=== PATIENT | female | born 1990 | race Caucasian/White ===

== ENCOUNTER 2016-11-21 13:39 | Emergency (ER) | payer OTHER ==
[~2016-11-21] VITALS: Ht 154.9 cm; Wt 91.1 kg
[2016-11-21 13:41] VITALS: BP 139/85; PULSE 80; TEMP 36.9; O2SAT 99; Ht 154.9 cm; Wt 91.1 kg
[2016-11-21] MEDS ORDERED: NYSTATIN POWDER 15GM BTL EXT ONE (14:45)
[2016-11-21] MEDS ORDERED: NYST-19 TD (15:15)
--- NOTE | 2016-11-21 15:15 | EMERGENCY ROOM VISIT NOTE ---
ED Visit Note First contact with patient: 13:48 Chief Complaint: Rash History of Present Illness: Patient is a [age] female who presents to the emergency department for evaluation of a rash under her breasts and stomach. She reports that she's had this rash past 2 weeks. She is tried Desitin as well as baby pallor and calamine lotion without relief of symptoms. She denies fevers or chills. She reports that the rash smells as well. She is not a diabetic. She's had no similar rashes in the past. She rates her current discomfort as a 5/10. She denies any fevers, chills, nausea, vomiting, or vaginal discharge/drainage. Medications: Reviewed and discussed with the patient. Allergies: Amoxicillin, penicillins PMH: No pertinent past medical history. SHx: Patient is a 26-year-old female who lives locally. ROS: All pertinent positive and negative review of systems are appropriately documented in the History of Present Illness. Physical Exam: VITAL SIGNS - Vital signs and Nursing Notes were reviewed. GENERAL -26 year old female, well-developed, well-nourished, and in no acute distress. SKIN -well demarcated erythematous rashes noted in the intertriginous areas under the breast and pannus. No discharge or warmth to touch. NEURO - Patient is A&Ox3 and communicates appropriately with the provider. ED Course: Patient was seen and evaluated by myself. The patient was provided nystatin powder for comfort. She'll follow-up with her primary care provider from today' s visit. She will return for any changing/worsening symptoms. Patient discharged home afebrile and in good condition. In the evaluation and treatment of this patient, the following differential diagnoses were considered: Cellulitis, dermatitis, foreign body, amongst others. Impression: Candidal Rash Discharge Instructions: You have been seen in the emergency department today for a candidal rash. Please apply the nystatin powder for comfort. Follow-up with your primary care provider from today's visit. Return for any changing or worsening symptoms. Problem List Medical Problems: (1) Asthma, Unspecified Status: Chronic (2) Contusion of wrist, right Status: Resolved (3) Dental caries Status: Resolved (4) Intrauterine Status: Resolved (5) Normal labor Status: Resolved (6) Otalgia of left ear Status: Resolved (7) Pain, dental Status: Resolved (8) Pain, dental Status: Resolved (9) Right conjunctivitis Status: Resolved (10) Upper respiratory infection Status: Resolved (11) Viral pharyngitis Status: Resolved (12) Wrist pain, right Status: Resolved Surgical Problems: (1) History of - tubal ligation Status: Resolved Current/Historical Medications Scheduled Nystatin (Topical) (Nyata), 1 APPLN TD TID Allergies Coded Allergies: Fish (Unverified Allergy, Severe, STOP BREATHING, 11/21/16) PATIENT STATES SHE IS ALLERGIC TO ALL FISH NOT JUST WHITE FISH White Fish (Verified Allergy, Severe, SWELLING; TROUBLE BREATHING, 11/21/16) Amoxicillin (Verified Allergy, Unknown, RASH, 11/21/16) Animal Dander (Verified Allergy, Unknown, ITCHING & SNEEZING, 11/21/16) Penicillins (Verified Allergy, Unknown, 11/21/16) Vital Signs Date Time Temp Pulse Resp B/P Pulse Ox O2 Delivery O2 Flow Rate FiO2 11/21/16 13:41 36.9 80 17 139/85 99 Room Air Medications Administered Medications (Trade) Dose Ordered Sig/Noemy Route Start Time Stop Time Status Last Admin Dose Admin Nystatin (Mycostatin Powder) 1 appln NOW ONCE EXT 11/21/16 14:45 11/21/16 14:46 DC 11/21/16 15:05 45 APPLN Departure Information Impression Primary Impression: Candidal intertrigo Dispostion Home / Self-Care Condition GOOD Prescriptions Nystatin (Topical) (Nyata) 100,000 Unit/Gm Pow 1 APPLN TD TID for 14 Days, #1 BTL 1 Refill Prov: Jerome Woodard, GERRY 11/21/16 Referrals No Doctor, Assigned (PCP) Patient Instructions ED Candidiasis Cutaneous, My [facility] Additional Instructions You have been seen in the emergency department today for a candidal rash. Please apply the nystatin powder for comfort. Follow-up with your primary care provider from today's visit. Return for any changing or worsening symptoms.
== END 2016-11-21 15:21 | disposition home or self-care (01) ==
LOC: C.EDB 13:41 → C.EDD 15:21
DX: B37.2 Candidiasis of skin and nail (principal); J45.909 Unspecified asthma, uncomplicated

== ENCOUNTER 2016-12-26 16:42 | Emergency (ER) | payer OTHER ==
[~2016-12-26] VITALS: Ht 154.9 cm; Wt 92.7 kg
[~2016-12-26 16:42] MED LIST: NYST-19 TD
[2016-12-26 16:49] VITALS: TEMP 36.8; Ht 154.9 cm; Wt 92.7 kg
[2016-12-26] MEDS ORDERED: BENZ100C18 PO (18:01)
--- NOTE | 2016-12-26 18:05 | DIAGNOSTIC IMAGING REPORT ---
SINGLE VIEW CHEST CLINICAL HISTORY: Cough. Sore throat. Atypical chest pain. FINDINGS: An AP, portable, upright chest radiograph is obtained. No prior studies are available for comparison at the time of dictation. The examination is degraded by portable technique, large body habitus, and patient rotation. The cardiomediastinal silhouette is unremarkable. The lungs and pleural spaces are clear. No pneumothorax is seen. The bony thorax is grossly intact. IMPRESSION: No active disease in the chest. Electronically signed by: Darren Oseguera M.D. 12/26/2016 6:03 PM Dictated Date/Time: 12/26/2016 6:03 PM
[2016-12-26 18:48] VITALS: BP 123/77; PULSE 120; O2SAT 99
--- NOTE | 2016-12-26 19:06 | EMERGENCY ROOM VISIT NOTE ---
History Report prepared by Randa: Karlo Jacinto Under the Supervision of: Dr. Stephen Finley D.O. First contact with patient: 16:52 Chief Complaint: ILLNESS Stated Complaint: LEFT EAR HURTS, SORE THROAT, CHEST HURTS, COUGH History of Present Illness The patient is a 26 year old female who presents to the Emergency Room with complaints of worsening cough and sore throat that began two days prior to arrival. The patient states that she is also experiencing pain in her left ear and a runny nose, but she denies any recent fevers. Pain in the left ear has been coming and going off-and-on for the past month. She also complains of a migraine headache. She has headaches frequently, and notes that this headache is per usual and unchanged as it came on gradually. The patient presents to the emergency department with two daughters who are also exhibiting flu-like symptoms. She denies change in vision, fevers, shortness of breath, nausea, vomiting, diarrhea, and pain with urination. Source of History: patient Onset: 2 days [employer]LECT[employer] Position: throat Quality: other (Sorethroat, cough) Timing: worsening Associated Symptoms: No fevers Note: Pt complains of left ear pain, and runny nose Review of Systems See HPI for pertinent positives & negatives. A total of 10 systems reviewed and were otherwise negative. Past Medical & Surgical Medical Problems: (1) Asthma, Unspecified (2) Contusion of wrist, right (3) Dental caries (4) Intrauterine (5) Normal labor (6) Otalgia of left ear (7) Pain, dental (8) Pain, dental (9) Right conjunctivitis (10) Upper respiratory infection (11) Viral pharyngitis (12) Wrist pain, right Surgical Problems: (1) History of - tubal ligation Family History No pertinent family history secondary to case specifics. Social History Smoking Status: Never Smoker Alcohol Use: none Marital Status: single Housing Status: lives with family Occupation Status: employed Current/Historical Medications Scheduled Benzonatate (Tessalon Perles), 100 MG PO TID Allergies Coded Allergies: Fish (Unverified Allergy, Severe, STOP BREATHING, 12/26/16) PATIENT STATES SHE IS ALLERGIC TO ALL FISH NOT JUST WHITE FISH White Fish (Verified Allergy, Severe, SWELLING; TROUBLE BREATHING, 12/26/16) Amoxicillin (Verified Allergy, Unknown, RASH, 12/26/16) Animal Dander (Verified Allergy, Unknown, ITCHING & SNEEZING, 12/26/16) Penicillins (Verified Allergy, Unknown, 12/26/16) Physical Exam Vital Signs Date Time Temp Pulse Resp B/P Pulse Ox O2 Delivery O2 Flow Rate FiO2 12/26/16 18:48 120 18 123/77 99 12/26/16 16:49 36.8 127 93 104/74 Room Air Physical Exam GENERAL: Sitting in chair. Disheveled with a dry cough. well nourished, no distress, non-toxic EYE EXAM: normal conjunctiva, PERRL and EOM's grossly intact EARS: TMs clear bilaterally. OROPHARYNX: no exudate, no erythema, lips, buccal mucosa, and tongue normal and mucous membranes are moist NECK: supple, no nuchal rigidity, no adenopathy, non-tender LUNGS: Clear to auscultation. Normal chest wall mechanics HEART: Tachycardiac. no murmurs, S1 normal and S2 normal ABDOMEN: abdomen soft, non-tender, normo-active bowel sounds, no masses, no rebound or guarding. BACK: Back is symmetrical on inspection and there is no deformity, no midline tenderness, no CVA tenderness. SKIN: no rashes and no bruising UPPER EXTREMITIES: upper extremities are grossly normal. LOWER EXTREMITIES: No pitting edema. NEURO EXAM: Normal sensorium, cranial nerves II-XII grossly intact, normal speech, no gross weakness of arms, no gross weakness of legs. Medical Decision & Procedures ER Provider Diagnostic Interpretation: Xray results per the radiologist and my interpretation. Other results have been interpreted by the radiologist and reviewed by me. SINGLE VIEW CHEST CLINICAL HISTORY: Cough. Sore throat. Atypical chest pain. FINDINGS: An AP, portable, upright chest radiograph is obtained. No prior studies are available for comparison at the time of dictation. The examination is degraded by portable technique, large body habitus, and patient rotation. The cardiomediastinal silhouette is unremarkable. The lungs and pleural spaces are clear. No pneumothorax is seen. The bony thorax is grossly intact. IMPRESSION: No active disease in the chest. Electronically signed by: Darren Oseguera M.D. 12/26/2016 6:03 PM Dictated Date/Time: 12/26/2016 6:03 PM ED Course ED COURSE: Vital signs were reviewed and showed Tachycardiac vitals The patients medical record was reviewed The above diagnostic studies were performed and reviewed. ED treatments and interventions as stated above. 1658: The patient was evaluated in room A11B. A complete history and physical examination was performed. 1815: Upon reevaluation, the patient is sitting in the room.I discussed my findings with the patient and she understands and agrees with the treatment plan. Based on the patients age, coexisting illnesses, exam and lab findings the decision to treat as an outpatient was made. The patient remained stable while under my care. The patient appeared well at the time of discharge. Medical Decision Differential diagnosis: Etiologies such as viral syndrome, otitis, pharyngitis, pneumonia, influenza, meningitis, urinary tract infection, sepsis, bacteremia, as well as others were entertained. Patient is a 26-year-old female with a past medical history of asthma who presents the ER with her 2 children with the same symptoms. Her symptoms started within the past 54 hours nursing sheet with a nonproductive cough, sore throat and her ear pain has been coming and going for the past month. Patient denies any recorded fevers above 100.4. She does have congestion as well. Vitals to show mild tachycardia. Her exam was benign without wheezing. Rapid strep was negative. Chest x-ray shows no focal infiltrate. Her child did test positive for influenza a and consequently I did not test her. She is discharged with Tessalon Perles and instructed to remain hydrated. I did offer steroids but she preferred just to treat coughing as she had no shortness of breath. Patient will follow-up with her primary care doctor in the next 24-48 hours. Discussed with Pt concerning signs and symptoms to watch out for. Pt was instructed to follow up with their PCP and discussed with the patient their option to return to the ED at anytime for persistent or worsening symptoms. The appropriate anticipatory guidance and out-patient management, including indications for return to the emergency department, were explained at length to the patient and understood. Impression Primary Impression: Viral URI with cough Additional Impression: Influenza A Scribe Attestation The scribe's documentation has been prepared under my direction and personally reviewed by me in its entirety. I confirm that the note above accurately reflects all work, treatment, procedures, and medical decision making performed by me. Departure Information Dispostion Home / Self-Care Prescriptions Benzonatate (TESSALON PERLES) 100 Mg Cap 100 MG PO TID for Cough, #30 CAP Prov: Stephen Finley, DO 12/26/16 Forms WORK / SCHOOL INSTRUCTIONS, HOME CARE DOCUMENTATION FORM, IMPORTANT VISIT INFORMATION Patient Instructions My [facility], ED URI Viral Additional Instructions Please follow up with your primary care doctor with in the next 24 hours. Any worsening of your symptoms, please return to the ED immediately. This includes shortness of breath, chest pain, passing out, persistent fevers greater than 100.4. The next 3 days or any other concerning signs or symptoms from your standpoint. Please take Tylenol or Motrin as needed for the pain with coughing. Please take the Tessalon Perles as needed for coughing. Problem Qualifiers
== END 2016-12-26 18:49 | disposition home or self-care (01) ==
LOC: C.EDB 16:44 → C.EDA 18:49
DX: J06.9 Acute upper respiratory infection, unspecified (principal); J09.X2 Influenza due to identified novel influenza A virus with other respiratory manifestations; J45.909 Unspecified asthma, uncomplicated; Z86.19 Personal history of other infectious and parasitic diseases; Z98.51 Tubal ligation status; Z88.0 Allergy status to penicillin; Z88.1 Allergy status to other antibiotic agents; Z91.018 Allergy to other foods

== ENCOUNTER → 2017-05-29 | Outpatient (CLI) | payer OTHER ==
[2017-06-01 03:15] LABS: CHLAMYDIA TRACH RNA*** NOT DETECTED (NOT DETECTED); GC (NEIS GONORRHOEAE)RNA** NOT DETECTED (NOT DETECTED)
== END | disposition home or self-care (01) ==
LOC: C.LABSPEC 13:42
PROVIDERS: ATTEND Physician Assistant
DX: Z01.419 Encounter for gynecological examination (general) (routine) without abnormal findings (principal)

== ENCOUNTER → 2017-05-29 | Outpatient (CLI) | payer OTHER | END | disposition home or self-care (01) | LOC: C.PAPS 13:34 | PROVIDERS: ATTEND Physician Assistant | DX: Z01.419 Encounter for gynecological examination (general) (routine) without abnormal findings (principal) ==

== ENCOUNTER → 2017-05-29 | Outpatient (CLI) | payer OTHER | END | disposition home or self-care (01) | LOC: C.LAB1850 10:34 | PROVIDERS: ATTEND Physician Assistant | DX: Z11.3 Encounter for screening for infections with a predominantly sexual mode of transmission (principal) ==

== ENCOUNTER 2017-08-06 08:55 | Emergency (ER) | payer OTHER ==
[~2017-08-06] VITALS: Ht 154.9 cm; Wt 89.6 kg
[2017-08-06 09:03] VITALS: TEMP 37.1; Ht 154.9 cm; Wt 89.6 kg
[2017-08-06 10:09] LABS: MANUAL MICROSCOPIC REQUIRED? NO; REVIEW REQ? NO; URINE APPEARANCE CLEAR (CLEAR); URINE BILIRUBIN NEG (NEG); URINE COLOR YELLOW; URINE EPITHELIAL CELL AUTO >30 /lpf (0-5); URINE NITRITE NEG (NEG); URINE PH 5.5 (4.5-7.5); URINE SPECIFIC GRAVITY 1.024 (1.000-1.030); UROBILINOGEN NEG (NEG); ZZUR CULT IF INDIC CLEAN CATCH NO
[2017-08-06] MEDS ORDERED: SULF800T23 PO (10:51)
[2017-08-06 11:27] VITALS: BP 108/77; PULSE 90; O2SAT 99
--- NOTE | 2017-08-07 07:05 | EMERGENCY ROOM VISIT NOTE ---
History First contact with patient: 09:11 Chief Complaint: ILLNESS History of Present Illness The patient is a 27 year old female who presents to the Emergency Room with complaints of sore throat, cough, and head congestion for the past 2-3 weeks. The patient is also complaining of some very low abdominal discomfort that has been worsening over the past 3 or 4 days. The patient has not had fever or chills. She is not followed with her primary care physician for this. She is not taking medications [id number]. She rates her discomfort a 5/10. Review of Systems More than 10 systems were reviewed and otherwise negative with the exception of history of present illness. Past Medical/Surgical History Medical Problems: (1) Asthma, Unspecified (2) Contusion of wrist, right (3) Dental caries (4) Intrauterine (5) Normal labor (6) Otalgia of left ear (7) Pain, dental (8) Pain, dental (9) Right conjunctivitis (10) Upper respiratory infection (11) Viral pharyngitis (12) Wrist pain, right Surgical Problems: (1) History of - tubal ligation Family History No pertinent family history Social History Smoking Status: Former Smoker Alcohol Use: none Marital Status: single Housing Status: lives with family Occupation Status: employed Current/Historical Medications Scheduled Sulfa/Trimethoprim (Bactrim Ds 800MG/160MG), 1 TAB PO BID Physical Exam Vital Signs Date Time Temp Pulse Resp B/P (MAP) Pulse Ox O2 Delivery O2 Flow Rate FiO2 08/06/17 11:27 90 18 108/77 99 08/06/17 09:03 37.1 87 16 124/79 98 Room Air Physical Exam VITALS: Vitals are noted on the nurse's note and reviewed by myself. Vital signs stable. GENERAL: Well-developed, well-nourished, white female, who is in no acute distress and resting comfortably. Patient is cooperative with the examination. EARS: External ear normal. External auditory canals clear, tympanic membranes pearly rockwell without erythema or effusion bilaterally. EYES: Pupils equal round and reactive to light and accommodation. Conjunctivae without injection, sclerae without icterus. Extraocular movements intact. NOSE: Patent, turbinates without inflammation or discharge. MOUTH: Mucous membranes moist. Tonsils are not enlarged. Pharynx without erythema, blood, or exudate. Uvula midline. Airway patent. NECK: Supple without nuchal rigidity. No lymphadenopathy. No thyromegaly. Cervical spine is nontender. HEART: Regular rate and rhythm without murmurs gallops or rubs. LUNGS: Clear to auscultation bilaterally without wheezes, rales or rhonchi. No retractions or accessory muscle use. ABDOMEN: Positive normal bowel sounds x 4. Soft, nontender, without masses or organomegaly. No guarding or rebound tenderness. MUSCULOSKELETAL: No muscle atrophy, erythema, or edema noted. Full range of motion without joint tenderness in all extremities. Medical Decision & Procedures Laboratory Results Test 08/06/17 09:51 08/06/17 09:55 Urine Color YELLOW Urine Appearance CLEAR (CLEAR) Urine pH 5.5 (4.5-7.5) Urine Specific [place] 1.024 (1.000-1.030) Urine Protein NEG (NEG) Urine Glucose (UA) NEG (NEG) Urine Ketones NEG (NEG) Urine Occult Blood NEG (NEG) Urine Nitrite NEG (NEG) Urine Bilirubin NEG (NEG) Urine Urobilinogen NEG (NEG) Urine Leukocyte Esterase MODERATE (NEG) Urine WBC (Auto) 5-10 /hpf (0-5) Urine RBC (Auto) 5-10 /hpf (0-4) Urine Hyaline Casts (Auto) 5-10 /lpf (0-5) Urine Epithelial Cells (Auto) >30 /lpf (0-5) Urine Bacteria (Auto) NEG (NEG) Urine Test NEG (NEG) Influenza Type A Antigen Neg for Influ A (NEG) Influenza Type B Antigen Neg for Influ B (NEG) ED Course Physical exam and history were performed. Nursing notes, EMR, and Medication List were personally reviewed. Patient appears to be describing flulike symptoms today. She does not appear toxic on examination. I offered to establish an IV and draw labs, however the patient declined stating that she has a needle phobia. She did consent to urinalysis and influenza testing. The influenza swab was negative, however her urine may suggest a UTI. This would explain some of her abdominal discomfort. Otherwise I suspect that she is experiencing URI symptoms and may be treated conservatively. I recommended that she follow with her primary care physician for ongoing care and evaluation. I will give her a short course of Bactrim and invite her back to the ER with any new, worsening, or concerning symptoms. The chart was completed utilizing Dragon Speech Voice Recognition Software. Grammatical errors, random word insertions, pronoun errors, and incomplete sentences are an occasional consequence of this system due to software limitations, ambient noise, and hardware issues. Any formal questions or concerns about the content, text, or information contained within the body of this dictation should be directly addressed to the provider for clarification. . Medical Decision Differential diagnosis: Etiologies such as viral syndrome, otitis, pharyngitis, pneumonia, influenza, meningitis, urinary tract infection, sepsis, bacteremia, as well as others were entertained. Blood Pressure Screening Patient's blood pressure: Normal blood pressure Impression Primary Impression: Upper respiratory infection Additional Impression: UTI (urinary tract infection) Departure Information Dispostion Home / Self-Care Condition GOOD Prescriptions Sulfa/Trimethoprim (Bactrim Ds 800MG/160MG) Tab 1 TAB PO BID for 3 Days, #6 TAB Prov: Chris Armijo PA-C 08/06/17 Forms HOME CARE DOCUMENTATION FORM, IMPORTANT VISIT INFORMATION Patient Instructions My [facility] Additional Instructions You were seen and evaluated today on an emergency basis only. This is not a substitute for, or an effort to provide, complete comprehensive medical care. It is not possible to recognize and treat all injuries or illnesses in a single emergency department visit. For this reason it is recommended that you followup with your primary care physician this week for any ongoing or persistent symptoms. Trimethoprim-Sulfamethoxazole(Bactrim DS): Take one pill twice daily for 3 days for your urine infection. All antibiotics can cause diarrhea. If this occurs and you feel worse or it does not resolve in 1-2 days follow up with your doctor or return to the Emergency Department as this could be signs of serious underlying problems. Any medication can cause an allergic reaction, stop the pills immediately and return to the ER for rash, hives, breathing difficulties, or swelling. You are welcome to return to the emergency department anytime with new, worsening, or concerning symptoms. Problem Qualifiers
== END 2017-08-06 11:23 | disposition home or self-care (01) ==
LOC: C.EDB 08:56 → C.EDA 11:23
DX: J06.9 Acute upper respiratory infection, unspecified (principal); N39.0 Urinary tract infection, site not specified; J45.909 Unspecified asthma, uncomplicated; K02.9 Dental caries, unspecified; Z98.51 Tubal ligation status; Z87.891 Personal history of nicotine dependence